=== PATIENT | male | born 1965 | race Caucasian/White ===

== ENCOUNTER 2025-03-09 18:53 | Inpatient (IN) | payer MEDICAID ==
[~2025-03-09] VITALS: Ht 170.2 cm; Wt 106.4 kg
--- NOTE | 2025-03-09 20:05 | Physician Documentation ---
History of Present Illness ~ Chief Complaint: Post-operative complication Stated Complaint: POST OP COMPLICATIONS Time Seen by MD: 20:04 OK to notify your PCP?: Yes Source: patient Mode of Arrival: POV Exam Limitations: no limitations HPI 60 year old male presents to the ED with concern of his left knee replacement not healing/being infected. His knee was replaced by Dr. Hunter on 02/18, he states that he has been really working it at physical therapy and has subsequently become swollen. He feels as though the bottom part of the incision is not healing and keeps getting worse. He called Dr. Hunter who advised him to come to the ED, he last saw him in office last week. Patient denies any fevers. Patient denies any other associated symptoms. Patient denies any other alleviating or exacerbating factors at this time. Medication Reconciliation Allergies: Coded Allergies: No Known Allergies (Unverified , 03/09/25) Scheduled Albuterol Sulfate/Budesonide (Airsupra 90-80 Mcg Inhaler), 90 MCG INH BID, (Reported) Aspirin (Aspirin), 1 TAB PO DAILY, (Reported) Atorvastatin Calcium (Atorvastatin Calcium), 1 TAB PO DAILY, (Reported) Carvedilol (Carvedilol), 1 TAB PO DAILY, (Reported) Ibuprofen (Ibuprofen), 1 TAB PO Q8H, (Reported) Lisinopril (Lisinopril), 1 TAB PO DAILY, (Reported) Scheduled PRN Acetaminophen (Acetaminophen), 1 TAB PO Q6H PRN PRN for pain or fever, (Reported) Oxycodone Hcl IR* (Oxycodone IR*), 1 TAB PO Q12H PRN PRN for pain, (Reported) Miscellaneous Medications Tirzepatide (Zepbound), (Reported) Discontinued Medications Unable to Obtain Medications (Unable to Obtain Medications), (Reported) Discontinued Reason: Other Past Medical History Past Medical History: No Pertinent History Past Surgical History: orthopedic surgeries Lives with: Spouse Lives In: Home Review of Systems All Other Systems at this time: Reviewed and Negative ROS As stated above in the HPI, otherwise all systems are reviewed and negative. Physical Exam Vital Signs: RN Vital Signs have been reviewed: Yes, Temperature: 98.6, Source: Temporal, Heart Rate: 91, Respiratory Rate: 15, BP: 138/77, Pulse Oximetry: 98, Weight: 106.360 Pulse Oximetry Reflects: adequate oxygenation Physical Exam General: Patient is awake, alert, oriented x4 in no acute distress and well appearing.~ Head: Normocephalic and atraumatic. Eyes: Conjunctival normal. EOMI. PERRL. ENT: Mucous membranes moist. Neck: Supple, trachea is midline. Chest: Clear to auscultation bilaterally without rales, rhonchi, or wheezes. There is no accessory muscle use or retractions. Cardiac: RRR without murmurs, gallops, or rubs. Abd: Soft, nondistended, nontender, with normoactive bowel sounds. No guarding, rebound, or rigidity. Extremities: Surgical incision to the anterior part of right knee measuring approximately 10 cm, lower 4 cm draining purulent drainage with foul smell. Associated cellulitis measuring [id number]. Back: No midline spinal or CVA tenderness. Skin: Warm and dry with no significant rash appreciated. Neuro: Cranial nerves II-XII grossly intact. No focal neuro deficits. Progress Progress Note 2012: Paging orthopedist Dr. Hunter. 2036: Spoke with Dr. Hunter, advised to aspirate the knee if there is concern for knee infection, otherwise he will evaluate in the morning. 2047: Dr. Hunter requests initiation of Vancomyacin and Ancef and will see in the morning. NPO after midnight. 2108: Resident hospitalist agrees to evaluate patient for admission. Results/Orders Results/Orders Orders - OCTAVIO SPRAGUE MD Electrocardiogram (03/09/25 20:10) Urinalysis, Cult If Indicated (03/09/25 20:10) Culture Blood (03/09/25 20:10) * Npo After Midnight * (03/09/25 20:48) Page Hospitalist (03/09/25 20:49) Fill Out Med Reconciliation (03/09/25 20:49) Completed Orders - OCTAVIO SPRAGUE MD Cbc/Diff (03/09/25 20:10) MG (03/09/25 20:10) Procalcitonin (03/09/25 20:10) BMP (03/09/25 20:10) Lacticsepsis (03/09/25 20:10) Vancomycin Inj (Vancomycin Inj) (03/09/25 20:10) Vancomycin/Ns 1 Gm Add-[place] (Vancomyc (03/09/25 20:14) C-Reactive Protein (03/09/25 20:21) Cefazolin 1gm/D5w- Add-[place] (Ancef 1 (03/09/25 20:50) Medications Received in ER Medications (Trade) Dose Ordered Sig/Da Route PRN Reason Start Time Stop Time Status Last Admin Dose Admin Vancomycin HCl 250 ml @ 166 mls/hr ONCE STAT IV 03/09/25 20:14 03/09/25 21:40 DC 03/09/25 23:08 166 MLS/HR Cefazolin Sodium/ Dextrose 50 ml @ 100 mls/hr ONCE ONCE IV 03/09/25 20:50 03/09/25 21:19 DC 03/09/25 21:46 100 MLS/HR Sodium Chloride 1,000 ml @ 50 mls/hr Q20H IV 03/09/25 21:10 03/09/25 21:46 50 MLS/HR Vital Signs 03/09/25 19:22 Temp 98.6 Pulse 91 Resp 15 B/P (MAP) 138/77 Pulse Ox 98 Laboratory Tests Test 03/09/25 20:21 White Blood Count 8.3 Red Blood Count 4.52 L Hemoglobin 13.3 L Hematocrit 40.4 L Mean Corpuscular Volume 89.4 Mean Corpuscular Hemoglobin 29.4 Mean Corpuscular Hemoglobin Concent 32.9 L Red Cell Distribution Width 14.5 Platelet Count 261 Mean Platelet Volume 7.7 Neutrophils (%) (Auto) 55.2 Lymphocytes (%) (Auto) 23.9 Monocytes (%) (Auto) 8.7 Eosinophils (%) (Auto) 11.0 H Basophils (%) (Auto) 1.2 H Neutrophils # (Auto) 4.6 Lymphocytes # (Auto) 2.0 Monocytes # (Auto) 0.7 Eosinophils # (Auto) 0.9 Basophils # (Auto) 0.1 CBC Comment Sodium Level 142 Potassium Level 4.0 Chloride Level 104 Carbon Dioxide Level 29.6 Anion Gap 8 Blood Urea Nitrogen 23 H Creatinine 1.01 Estimated GFR/1.73 m2 76 BUN/Creatinine Ratio 22.8 H Glucose Level 117 H Lactic Acid Level 1.1 Calcium Level 8.8 Magnesium Level 2.2 C-Reactive Protein 8.32 H Albumin 3.6 Procalcitonin < 0.05 Chemistry Comments Microbiology Date/Time Source Procedure Growth Status 03/09/25 20:30 Blood Arm Left Blood Culture - Preliminary NEGATIVE (LESS THAN 24 HOURS) Resulted Medical Decision Making Additional information obtaine: old records Findings Patient presents to the emergency room with draining from his right knee that has per HPI. Differentials include but are not limited to septic arthritis, cellulitis, superficial skin infection, abscess therefore emergent labs ordered. Labs are reassuring. IV antibiotics initiated. Patient is able to move his knee and that has not that has if that has entire knees infected and I agree with him and I do not feel needle aspiration/arthrocentesis that has necessary at this time. IV antibiotics initiated and I have spoken with patient's orthopedic physician he will be seeing him in the morning. General Diff Dx:Considerations: Include: Abrasion, Contusion, Fracture, Hematoma, Laceration, Malunion, Neurovascular injury, Open fracture, Sprain, Ulcer, Other Knee Diff Dx:Considerations: Include: Abrasion, Arthritis, Contusion, DJD, Fracture-femur, Fracture-fibula, Fracture-patella, Fracture-tibia, Gout, Hematoma, Laceration, Meniscus injury, Neurovascular injury, Open fracture, Rheumatoid arthritis, Septic, Sprain, Sprain-MCL, Sprain-LCL, Sprain-ACL, Sprain-PCL, Other Ankle Diff Dx:Considerations: Include: Abrasion, Arthritis, Contusion, DJD, Fracture-metatarsal, Fracture-fibula, Fracture-tarsal, Fracture-tibia, Gout, Hematoma, Laceration, Malunion, Neurovascular injury, Nonunion, Open fracture, Osteomyelitis, Rheumatoid arthritis, Sprain, Septic, Ulcer, Other Foot Diff Dx:Considerations: Include: Abrasion, Arthritis, Cellulitis, Contusion, Dislocation, DJD, Fracture-metatarsal, Fracture-phalynx, Fracture- tarsal, Gout, Hematoma, Ingrown toenail, Laceration, Malunion, Neurovascular injury, Open fracture, Paronychia, Puncture, Rheumatoid, Sprain, Septic, Subungual hematoma, Ulcer, Other Toe Diff Dx:Considerations: Include: Abrasion, Cellulitis, Contusion, Dislocation, Felon, Fracture, Hematoma, Laceration, Neurovascular injury, Open fracture, Paronychia, Subungual hematoma, Other Departure Time of Disposition: 21:09 Disposition: ADMITTED INPATIENT Admitted to Inpatient Unit: yes, to hospitalist Impression: Primary Impression: Post op infection Qualified Codes: T81.41XD - Infection following a procedure, superficial incisional surgical site, subsequent encounter Condition: Fair Referrals: NO PRIMARY CARE PROVIDER (PCP) Signature Scribe Signature: Scribed for Octavio Sprague MD by Maggy Cochran . 03/09/25 21:00 Attestation: The note accurately reflects work and decisions made by me.Octavio Sprague MD 03/10/25 02:26 OCTAVIO SPRAGUE MD Mar 09, 2025 20:05 MAGGY ENGLISH Mar 09, 2025 21:00
[2025-03-09] MEDS ORDERED: vancomycin inj 1,000 MG in normal saline 250ml IV soln 250 ML IV STA (20:10)
[2025-03-09 20:33] LABS: MEAN PLATELET VOLUME 7.7 FL (7.4-10.4); RED CELL DISTRIBUTION WIDTH 14.5 % (11.5-14.5)
[2025-03-09 20:40] LABS: CREATININE 1.01 MG/DL (0.60-1.10); TOTAL CARBON DIOXIDE 29.6 MMOL/L (24-32); eCRCL 74 ML/MIN; eGFR 76 ML/MIN
[2025-03-09] MEDS ORDERED: potassium Cl 40MEQ/1/2NS 520ml 520 ML IV PRN (21:10)
[2025-03-09] MEDS ORDERED: mag hydrox/Alum hydrox/simeth 30ml oral suspension PO PRN (21:10)
[2025-03-09] MEDS ORDERED: magnesium hydroxide 30ml (MOM) UD suspension PO PRN (21:10)
[2025-03-09] MEDS ORDERED: magnesium sulf-water 4G/100mL 100 ML IV PRN (21:10)
[2025-03-09] MEDS ORDERED: magnesium sulf-water 2g/50mL 50 ML IV PRN (21:10)
[2025-03-09] MEDS ORDERED: HYDROcodone/acetaminophen 5mg/325mg tablet PO PRN (21:10)
[2025-03-09] MEDS ORDERED: potassium Cl 20 mEq SR tablet PO PRN ×2 (21:10)
[2025-03-09] MEDS ORDERED: magnesium Cl slow-release 64mg tablet PO PRN (21:10)
[2025-03-09] MEDS ORDERED: ondansetron/PF 4mg/2ml inj IV PRN (21:10)
[2025-03-09] MEDS: normal saline 1000ml 1,000 ML IV SCH (21:46)
[2025-03-09] MEDS: ceFAZolin 1GM/D5W- ADD-VANTAGE 50 ML IV ONE (21:46)
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
[2025-03-09] MEDS ORDERED: albuterol 1.25 MG/3 ML (1/2 strength) nebule NEB PRN (23:05)
[2025-03-09] MEDS: vancomycin/NS 1 GM ADD-VANTAGE 250 ML IV STA (23:08)
[2025-03-09] MEDS ORDERED: UNABLE TO OBTAIN (23:18)
[2025-03-09 23:30] VITALS: BP 133/67; PULSE 16; RESP 16; TEMP 97.7; O2SAT 97
[2025-03-09] MEDS ORDERED: ATOR40TA72 PO (23:51)
[2025-03-09] MEDS ORDERED: ASPI-10 PO (23:51)
[2025-03-09] MEDS ORDERED: CARV-50 PO (23:51)
[2025-03-09] MEDS ORDERED: IBUP600T52 PO (23:51)
[2025-03-09] MEDS ORDERED: TIRZ10PE3 (23:51)
[2025-03-09] MEDS ORDERED: LISI10TA27 PO (23:51)
[2025-03-09] MEDS ORDERED: ACET-1015 PO (23:51)
[2025-03-09] MEDS ORDERED: ALBU10.7 INH (23:51)
[2025-03-09] MEDS ORDERED: OXYC-658 PO (23:51)
[2025-03-10] VITALS: RESP 16; O2SAT 97
[2025-03-10] MEDS ORDERED: albuterol 2.5 MG/3 ML nebule NEB PRN (00:05)
[2025-03-10] MEDS: lactobacillus rhamnosus 10,000 MMU CELLS/CAPSULE PO SCH (00:57)
[2025-03-10] MEDS: HYDROcodone/acetaminophen 10/325mg tab PO PRN (05:28)
[2025-03-10 06:00] VITALS: BP 106/64; PULSE 86; RESP 18; TEMP 99.7; O2SAT 96
[2025-03-10 07:03] LABS: MEAN PLATELET VOLUME 8.0 FL (7.4-10.4); RED CELL DISTRIBUTION WIDTH 14.4 % (11.5-14.5)
[2025-03-10] MEDS: vancomycin/NS 1 GM ADD-VANTAGE 250 ML IV SCH (07:14)
--- NOTE | 2025-03-10 07:14 | CONSULTATION REPORT ---
CONSULTATION REPORT CONSULTATION REPORT This patient is well known to me because of knee replacement surgery approximately 2-1/2 weeks ago. He is admitted last night with increasing redness and drainage along with a foul odor from the surgical wound. He has known vascular disease and at his office visit a few days ago was beginning to have some wound healing problems. Physical examination shows that the distal 3rd of the incision is indeed open and has purulent foul-smelling drainage. His erythema that was visible on the photographs sent to me from the emergency room last night is markedly improved. His knee range of motion is still good and there is no erythema directly around the knee joint. There is also no major soft tissue swelling around the knee joint. Knee range of motion is still comfortable so this appears to be a superficial skin and subcutaneous tissue infection rather than a deep knee joint infection. On the real the wound is debrided, it is open to bit and some sutures removed. A wet-to-dry dressing was placed. Plan patient will continue on his intravenous antibiotics. We will see what we identified in terms of cultures. We will make a decision about home antibiotic therapy and wound care and then he could be discharged. He will need home health. It does not appear that we need to plan a trip to the operating room so he can begin normal diet today. ~ HALINA BRYAN MD Mar 10, 2025 07:14
[2025-03-10] MEDS: heparin, porcine 5000 units/ml vial SQ SCH (07:15)
[2025-03-10 07:38] LABS: % IRON SATURATION 14 % (11-46)
[2025-03-10 07:39] LABS: CREATININE 0.80 MG/DL (0.60-1.10); TOTAL CARBON DIOXIDE 27.6 MMOL/L (24-32); eCRCL 93 ML/MIN; eGFR > 90 ML/MIN
[2025-03-10] MEDS: pantoprazole 40mg Tablet.DR PO SCH (07:41)
[2025-03-10 07:43] VITALS: RESP 16; O2SAT 95
[2025-03-10] MEDS: HYDROcodone/acetaminophen 10/325mg tab PO ONE (07:48)
[2025-03-10] MEDS ORDERED: CefTRIAXone/D5W-Rocephin 1gm 50 ML IV SCH (08:00)
[2025-03-10] MEDS: K and/or MAG REPLACEMENT MC SCH (08:00)
[2025-03-10] MEDS: CEFEPIME 2gm in D5W 50mL 50 ML IV SCH (09:24)
[2025-03-10 10:00] VITALS: BP 91/45; PULSE 64; RESP 19; TEMP 98.4; O2SAT 92
--- NOTE | 2025-03-10 10:58 | PROGRESS NOTE ---
Daily Progress Note Providers to CC Please disregard this entry, Duplicate ~ Central Line/PICC still needed: No [place]-Non Protocol [place] Indications Met/Not Met: F/C Indications Not Met Antibiotic Timeout Antibiotic Ordered?: Yes Objective Vital Signs Date Time Temp Pulse Resp B/P (MAP) Pulse Ox O2 Delivery O2 Flow Rate FiO2 03/10/25 08:35 86 03/10/25 07:43 16 95 Room Air 0.0 03/10/25 06:00 99.7 106/64 (78) Result Diagram: 03/10/25 0603 03/10/25 0603 Problem\Assessment\Plan Plan Assessment and plan: 60-year-old male patient presented to the hospital with chief complaint of right knee swelling. Right knee swelling: Right knee cellulitis: S/p right knee arthroplasty on 02/18: The patient underwent right knee arthroplasty on 02/[address] Hunter. After the procedure the patient states that the distal part of his surgical scar did not heal appropriately. The patient states that he has been having some secretion and increased opening of the wound. Evidence of 5 cm open surgical scar, mild yellowish mixed with blood secretion evidenced. Erythema around the area. Due to the recent procedure empiric antibiotic with MRSA and Pseudomonas coverage has been considered. Plan: Dr. Vee consulted by ER physician who is going to see the patient in a.m and recommended NPO. Empiric antibiotics with vancomycin and cefepime. Culturelle [id number] mmu b.i.d. Mild normocytic normochromic anemia: Hemoglobin 13.3, hematocrit 40.4. Follow-up iron studies. Continue to monitor with CBC. H/O COPD-not in acute exacerbation: Albuterol PRN. H/O MALGORZATA: CPAP at night. H/O diabetes mellitus: Currently not in medication. Follow-up hemoglobin A1c. H/O hyperlipidemia: We will continue his home medication after med reconciliation. Code status: Full code DVT prophylaxis: Heparin Analgesia/sedation: Morphine/[place] Line/tube: PIV GI prophylaxis: Protonix Nutrition: NPO after midnight. PT: Yes Prognosis: Guarded Disposition: The patient will be admitted to ortho floor. Date of Service: Mar 10, 2025 Billing Provider: FREDY BORJA MD Common Visit Codes: NOT BILLABLE FREDY BORJA MD Mar 10, 2025 10:58
[2025-03-10] MEDS ORDERED: ringers solution, lactated 500ml IV solution IV ONE (12:25)
--- NOTE | 2025-03-10 13:01 | ELECTROCARDIOGRAPH REPORT ---
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 Shane Figueroa Measurements Intervals Inez Rate: 82 P: 36 AR: 193 QRS: 72 QRSD: 111 T: 44 QT: 383 QTc: 448 Interpretive Statements Sinus rhythm Low voltage, extremity and precordial leads Baseline wander in lead(s) V2 Electronically Signed On 03-10-2025 21:12:[address] Shane Figueroa Please click the below link to view image of tracing.
[2025-03-10] MEDS: ringers solution, lacted 1,000 ML IV ONE (13:10)
[2025-03-10 14:02] VITALS: BP 97/53
[2025-03-10] MEDS ORDERED: vancomycin/NS 1 GM ADD-VANTAGE 250 ML X 1 DOSE IV SCH (15:00)
--- NOTE | 2025-03-10 17:42 | DISCHARGE SUMMARY ---
Discharge Summary Providers to No ~ complaint today, cleared for discharge by Orthopedic doctor Discharge Summary Assessment Right Knee cellulitis Status post right knee arthroplasty Anemia right upper lobectomy. History broken ribs, he was under mechanical ventilation COPD. Obstructive sleep apnea Hyperlipidemia. Diabetes mellitus , Hill's palsy Admission Diagnosis: LEFT KNEE INFECTION / CELLULITIS Admission Diagnosis Comment: Right Knee cellulitis Status post right knee arthroplasty Anemia right upper lobectomy. History broken ribs, he was under mechanical ventilation COPD. Obstructive sleep apnea Hyperlipidemia. Diabetes mellitus , Hill's palsy Hospital Course DATE OF ADMISSION: March 09, 2025 DATE OF DISCHARGE: March 10, 2025 Discharge Diagnosis\Comment: Right Knee cellulitis Status post right knee arthroplasty Anemia right upper lobectomy. History broken ribs, he was under mechanical ventilation COPD. Obstructive sleep apnea Hyperlipidemia. Diabetes mellitus , Hill's palsy Operations\Procedures: Non Consultants: Orthopedic doctor Complications: Non Condition on DC: Stable Discharge Summary: 89-year-old male patient presented to the hospital with chief complaint of right knee swelling. The patient states that he had a right knee replacement on February 18, 2025, after the procedure the patient was discharged home, the patient has been doing home health and physical therapy. After the procedure he noticed that the upper part of his surgical scar was healing up however the lower part of the scar did not heal well. He states that he has been having some discharge, yellowish with some blood. He also endorses pain scaled as 4/5 in intensity and described as stabbing type, without radiation. The patient states that he also noticed some swelling and redness which started during the last week. In addition to that, the wound has been opening up during the last week reason for which he decided to come to the hospital. The patient currently denies any fever, chills, chest pain, shortness of breath. He was extensively evaluated treated today he feels better cleared for discharge by orthopedic doctor, medication reconciled, follow-up with the orthopedic doctor in two days, today on physical exam, p Vital signs, stable ,afebrile. Pulse Oximetry reflects adequate oxygenation. General: well developed, well nourished. Awake , alert, and oriented x4, resting comfortably in the bed, in no acute distress . Skin: Warm, dry, no pallor, no rash or petechiae. HEENT: Atraumatic, normocephalic, EOMI, anicteric sclera B; pink conjunctiva; PERRLA, normal oropharynx, moist oral and nasal mucosa. Tympanic membrane , nose , throat clear. Neck: Trachea midline. Supple, full range of motion, no JVD, bruit , hepatojugular reflex , lymphadenopathy or masses, or other lesions Cardiac: Regular rhythm, regular rate no murmurs, rubs, or gallops. Normal S1 and S2, no S3 noticed. PMI is normal. Respiratory: Equal breath sounds bilaterally, no tachypnea; lungs clear to auscultation bilaterally, no wheezing ,rub or rales, or crackles. Chest wall is symmetric and without deformity. No signs of trauma. Chest wall is nontender. No signs of respiratory distress. Resonance is normal upon percussion bilaterally. Gastrointestinal: Abdomen symmetric, non-distended, soft, non-tender, normal bowel sounds x4 quadrant, normoactive, no hepatosplenomegaly , no masses , no bruit, no flank pain bilaterally. No voluntary guarding, rebound, or rigidity. No tenderness to percussion. No pulsatile masses. Equal femoral pulses. No Wagner's sign or McBurney point tenderness. Back; no CVA tenderness bilaterally, no deformities. Neck and back are without deformity as well. No tenderness noted on palpation of the spinous processes. Spinous processes are midline. Cervical, thoracic, and lumbar paraspinal muscles are not tender and are without spasm. : normal external genitalia, without lesions, swelling, masses or tenderness. Musculoskeletal: Extremities, normal range of motion, non-tender, muscle strength 5/5 x 4. Negative Homans signs bilaterally on lower extremity. Distal pulses full symmetrical, no clubbing, cyanosis , edema. Neurological: Speech is clear, alert, and oriented x 4. No motor or sensory deficit, deep tendon reflexes normal, cerebellar intact. Cranial nerves II-XII intact. Psych: Alert and or appropriate, normal affect. Vascular: Good distal pulses, which are equal x4; capillary refill less than 2 seconds. Lymphatic, no lymphadenopathy. *Problems/Diagnosis: (1) Post op infection Status: Acute Total Time Spent on D/C: > 30 Minutes Date of Service: Mar 10, 2025 Billing Provider: FREDY BORJA MD Common Visit Codes: 48516-YCS/OBS DISCH DAY >30min Problem Qualifiers (1) Post op infection: Qualified Codes: T81.41XD - Infection following a procedure, superficial incisional surgical site, subsequent encounter FREDY BORJA MD Mar 10, 2025 17:42
[2025-03-10] MEDS ORDERED: VANCOMYCIN LEVEL IV ONE (22:30)
== END 2025-03-10 14:25 | disposition home or self-care (01) | DRG 383 ==
LOC: ER 18:54 → ED HOLD 21:13 → ORTHO 4S 23:25
PROVIDERS: ADMIT Internal Medicine Sleep Medicine; ATTEND Family Medicine
DX: L03.115 Cellulitis of right lower limb (principal); T81.40XA Infection following a procedure, unspecified, initial encounter; D64.9 Anemia, unspecified; E11.9 Type 2 diabetes mellitus without complications; E78.5 Hyperlipidemia, unspecified; G47.33 Obstructive sleep apnea (adult) (pediatric); J44.9 Chronic obstructive pulmonary disease, unspecified; Y83.8 Other surgical procedures as the cause of abnormal reaction of the patient, or of later complication, without mention of misadventure at the time of the procedure; Z96.651 Presence of right artificial knee joint; M25.461 Effusion, right knee; G51.0 Bell's palsy; Y92.89 Other specified places as the place of occurrence of the external cause; Z79.82 Long term (current) use of aspirin; Z79.899 Other long term (current) drug therapy
CPT/HCPCS: 36415; 80048; 80053; 82728; 83036; 83540; 83550; 83605; 83735; 84145; 85025; 86140; 87040; 87081; 93005; 96365; 99285; A6258; A6266; A6449; G0378; J0690; J0692; J1644; J3373; J7030; J7120